=== PATIENT | female | born 1990 | race Caucasian/White ===

== ENCOUNTER 2017-07-23 17:09 | Emergency (ER) | payer OTHER ==
[~2017-07-23] VITALS: Ht 162.6 cm; Wt 76.2 kg
[2017-07-23] MEDS ORDERED: PRAZOSIN HCL2 MG PO (18:57)
[2017-07-23] MEDS ORDERED: PROMETHAZINE HC25 M1 PO (18:57)
[2017-07-23] MEDS ORDERED: LAMOTRIGINE100 MG PO (18:58)
[2017-07-23] MEDS ORDERED: QUETIAPINE FUM200 MG PO (18:58)
[2017-07-23] MEDS ORDERED: IBUPROFEN800 MG PO (18:58)
[2017-07-23] MEDS ORDERED: ESCITALOPRAM OX20 MG PO (18:59)
[2017-07-23] MEDS ORDERED: GABAPENTIN300 MG PO (18:59)
[2017-07-23] MEDS ORDERED: TOPIRAMATE100 MG PO (19:00)
== END 2017-07-23 21:30 | disposition home or self-care (01) ==
LOC: ED 17:09
DX: R51 Headache (principal); F17.200 Nicotine dependence, unspecified, uncomplicated; Z98.51 Tubal ligation status; Z88.0 Allergy status to penicillin; Z88.1 Allergy status to other antibiotic agents; Z79.899 Other long term (current) drug therapy
CPT/HCPCS: 96361; 96374; 96375; 99282; J1200; J1885; J2765; J7030

== ENCOUNTER 2017-08-28 21:12 | Emergency (ER) | payer OTHER ==
[~2017-08-28] VITALS: Ht 162.6 cm; Wt 81.7 kg
[~2017-08-28 21:12] MED LIST: ESCITALOPRAM OX20 MG PO; GABAPENTIN300 MG PO; IBUPROFEN800 MG PO; LAMOTRIGINE100 MG PO; PRAZOSIN HCL2 MG PO; PROMETHAZINE HC25 M1 PO; QUETIAPINE FUM200 MG PO; TOPIRAMATE100 MG PO
[2017-08-28] MEDS ORDERED: NAPROXEN500 MG PO (22:49)
[2017-08-28] MEDS ORDERED: CYCLOBENZAPRINE10 MG PO (22:49)
== END 2017-08-28 23:08 | disposition home or self-care (01) ==
LOC: ED 21:12
DX: M54.5 Low back pain (principal); G89.29 Other chronic pain; G43.909 Migraine, unspecified, not intractable, without status migrainosus; F17.200 Nicotine dependence, unspecified, uncomplicated; Z88.0 Allergy status to penicillin; Z88.1 Allergy status to other antibiotic agents; Z79.899 Other long term (current) drug therapy
CPT/HCPCS: 99283

== ENCOUNTER 2017-10-08 08:32 | Emergency (ER) | payer OTHER ==
[~2017-10-08] VITALS: Ht 162.6 cm; Wt 81.7 kg
[~2017-10-08 08:32] MED LIST changes: +CYCLOBENZAPRINE10 MG PO; +NAPROXEN500 MG PO
[2017-10-08] MEDS ORDERED: ONDANSETRON ODT8 MG PO (09:47)
== END 2017-10-08 09:59 | disposition home or self-care (01) ==
LOC: ED 08:32
DX: R11.2 Nausea with vomiting, unspecified (principal); R10.9 Unspecified abdominal pain; G43.909 Migraine, unspecified, not intractable, without status migrainosus; F17.200 Nicotine dependence, unspecified, uncomplicated; Z88.0 Allergy status to penicillin; Z88.1 Allergy status to other antibiotic agents; Z79.899 Other long term (current) drug therapy
CPT/HCPCS: 80053; 81001; 82150; 83690; 84703; 85025; 99283